=== PATIENT | male | born 1950 | race African-American/Black ===

== ENCOUNTER 2024-06-28 20:15 | Inpatient (IN) | payer MEDICARE, OTHER ==
[~2024-06-28] VITALS: Ht 185.4 cm; Wt 95.3 kg
[2024-06-28 21:19] LABS: BASOPHILS % (AUTO) 0.5 % (0.0-2.0); EOSINOPHILS # (AUTO) 0.2 K/uL (0.0-0.7); EOSINOPHILS % (AUTO) 2.5 % (0.0-6.0); HEMATOCRIT 41 % (39-51); LYMPHOCYTES # (AUTO) 1.1 K/uL (0.8-4.8); LYMPHOCYTES % (AUTO) 18.3 % (20.0-44.0); MEAN CORPUSCULAR HEMOGLOBIN 31 PG (26.0-33.0); MEAN CORPUSCULAR HGB CONC 34 g/dl (31.0-36.0); MEAN CORPUSCULAR VOLUME 89 fL (80-96); MONOCYTES # (AUTO) 0.6 K/uL (0.1-1.30); MONOCYTES % (AUTO) 9.2 % (2.0-12.0); NEUTROPHILS # (AUTO) 4.2 K/uL (1.8-8.9); NEUTROPHILS % (AUTO) 69.5 % (43.0-81.0); PLATELET COUNT (AUTO) 188 K/uL (150-450); RED BLOOD CELL COUNT(AUTO) 4.59 MIL/uL (4.5-6.0); RED CELL DISTRIBUTION WIDTH 13.2 % (11.5-15.0); WHITE BLOOD COUNT (AUTO) 6.1 K/uL (4.3-11.0)
[2024-06-28 21:35] LABS: APPEARANCE,URINE CLEAR (CLEAR); BILIRUBIN,URINE NEGATIVE (NEGATIVE); BLOOD, URINE NEGATIVE Ery/uL (NEGATIVE); COLOR,URINE YELLOW (YELLOW); KETONES,URINE NEGATIVE (NEGATIVE); LEUKOCYTE ESTERASE ,URINE NEGATIVE (NEGATIVE); NITRITE, URINE NEGATIVE (NEGATIVE); PROTEIN,URINE NEGATIVE (NEGATIVE); UGLUCOSE NEGATIVE (NEGATIVE); UROBILINOGEN,URINE 0.2 EU/dL (0.2)
[2024-06-28 21:37] LABS: ALANINE AMINOTRANSFERASE 20 U/L (12-78); ALBUMIN 3.6 g/dL (3.4-5.0); ALKALINE PHOSPHATASE 78 U/L (46-116); ASPARTATE AMINOTRANSFERASE 14 U/L (15-37); BILIRUBIN,DIRECT 0.1 mg/dL (0.0-0.2); BILIRUBIN,TOTAL 0.3 mg/dL (0.2-1.0); CALCIUM, SERUM 9.4 mg/dL (8.5-10.1); CARBON DIOXIDE 26 mmol/L (21-32); CHLORIDE 97 mmol/L (98-107); CREATININE 1.1 mg/dL (0.6-1.3); GLUCOSE 194 mg/dL (74-106); POTASSIUM 4.5 mmol/L (3.5-5.1); SODIUM SERUM 131 mmol/L (136-145); TOTAL PROTEIN, SERUM 7.5 g/dL (6.4-8.2); UREA NITROGEN, BLOOD 16 mg/dL (7-18)
[2024-06-28 21:38] LABS: SALICYLATE 0.7 mg/dL (2.8-20.0)
[2024-06-28 21:39] LABS: ACETAMINOPHEN <10 ug/ml (10-30); ALCOHOL, BLOOD < 3 mg/dL (0-10)
[2024-06-28 21:44] LABS: AMPHETAMINE, URINE NEGATIVE (NEGATIVE); BARBITURATE, URINE NEGATIVE (NEGATIVE); BENZODIAZEPINE, URINE NEGATIVE (NEGATIVE); CANNABINOID, URINE NEGATIVE (NEGATIVE); COCCAINE, URINE NEGATIVE (NEGATIVE); OPIATE, URINE NEGATIVE (NEGATIVE); PHENCYCLIDINE SCREEN,URINE NEGATIVE (NEGATIVE)
[2024-06-28] MEDS ORDERED: AMLO5TAB4 PO (23:17)
[2024-06-28] MEDS ORDERED: SITA50TA PO (23:17)
[2024-06-28] MEDS ORDERED: GLIP5TAB13 PO (23:17)
[2024-06-28] MEDS ORDERED: RISP0.2515 PO (23:17)
[2024-06-28] MEDS ORDERED: CLOP75TA15 PO (23:17)
[2024-06-28] MEDS ORDERED: PRAV20TA4 PO (23:17)
[2024-06-28] MEDS ORDERED: LOSA50TA39 PO (23:17)
[2024-06-28] MEDS ORDERED: FOLI0.8T3 PO (23:17)
[2024-06-28] MEDS ORDERED: LEVE500T20 PO (23:17)
[2024-06-29] MEDS ORDERED: DEXTROSE 50%-WATER 50 ML DISP.SYRIN IV PRN (01:00)
[2024-06-29] MEDS ORDERED: MAGNESIUM HYDROXIDE 30 ML UDC PO PRN (01:00)
[2024-06-29] MEDS ORDERED: MAG HYDROX/AL HYDROX/SIMETH 30 ML UDC PO PRN (01:00)
[2024-06-29] MEDS: BLOOD SUGAR DIAGNOSTIC 1 EACH STRIP IN ONE (01:11)
[2024-06-29 01:15] VITALS: BP 135/80; TEMP 98; O2SAT 98
[2024-06-29] MEDS ORDERED: TEMAZEPAM 15 MG CAPSULE PO PRN (01:30)
[2024-06-29] MEDS ORDERED: LORAZEPAM 1 MG TABLET PO PRN ×2 (01:30)
[2024-06-29] MEDS: BLOOD SUGAR DIAGNOSTIC 1 EACH STRIP IN SCH (07:00)
[2024-06-29] MEDS: INSULIN REGULAR, HUMAN 100 UNIT/ML 3 ML VIAL SQ PRN (07:59)
[2024-06-29 08:00] VITALS: BP 147/88; TEMP 97.8; O2SAT 98
[2024-06-29] MEDS: LOSARTAN POTASSIUM 50 MG TABLET PO SCH (11:01)
[2024-06-29] MEDS: LEVETIRACETAM (250 MG) 250 MG TABLET PO SCH (11:01)
[2024-06-29] MEDS: AMLODIPINE BESYLATE 5 MG TABLET PO SCH (11:01)
[2024-06-29] MEDS: CLOPIDOGREL BISULFATE 75 MG TABLET PO SCH (11:01)
[2024-06-29] MEDS: glipiZIDE 5 MG TABLET PO SCH (11:01)
[2024-06-29 16:00] VITALS: BP 123/83; TEMP 97.7; O2SAT 100
[2024-06-29 20:01] VITALS: BP 114/63; TEMP 97.7; O2SAT 100
[2024-06-29] MEDS: risperiDONE 0.25 MG TABLET PO SCH (22:01)
[2024-06-30 08:00] VITALS: BP 121/63; TEMP 98.3; O2SAT 99
[2024-06-30 08:31] LABS: BASOPHILS % (AUTO) 0.8 % (0.0-2.0); EOSINOPHILS # (AUTO) 0.2 K/uL (0.0-0.7); EOSINOPHILS % (AUTO) 3.5 % (0.0-6.0); HEMATOCRIT 39 % (39-51); HEMOGLOBIN 13.4 g/dL (13.5-17.5); LYMPHOCYTES % (AUTO) 19.7 % (20.0-44.0); MEAN CORPUSCULAR HEMOGLOBIN 31 PG (26.0-33.0); MEAN CORPUSCULAR HGB CONC 34 g/dl (31.0-36.0); MEAN CORPUSCULAR VOLUME 89 fL (80-96); MONOCYTES # (AUTO) 0.5 K/uL (0.1-1.30); MONOCYTES % (AUTO) 10.4 % (2.0-12.0); NEUTROPHILS # (AUTO) 3.3 K/uL (1.8-8.9); NEUTROPHILS % (AUTO) 65.6 % (43.0-81.0); PLATELET COUNT (AUTO) 190 K/uL (150-450); RED BLOOD CELL COUNT(AUTO) 4.41 MIL/uL (4.5-6.0)
[2024-06-30 08:43] LABS: CALCIUM, SERUM 9.3 mg/dL (8.5-10.1); CREATININE 0.9 mg/dL (0.6-1.3); POTASSIUM 5.1 mmol/L (3.5-5.1)
[2024-06-30] MEDS: ATORVASTATIN 10 MG TABLET PO SCH (08:44)
[2024-06-30] MEDS: LINAGLIPTIN 5 MG TABLET PO SCH (08:44)
[2024-06-30] MEDS: FOLIC ACID 1 MG TABLET PO SCH (08:44)
[2024-06-30 08:47] LABS: MAGNESIUM 2.1 mg/dL (1.8-2.4); PHOSPHORUS 3.5 mg/dL (2.5-4.9)
[2024-06-30 09:07] LABS: THYROID STIMULATING HORMONE 0.86 uIU/mL (0.358-3.74); URIC ACID 3.9 mg/dL (2.6-7.2)
[2024-06-30 16:00] VITALS: BP 126/74; TEMP 98.1; O2SAT 98
[2024-06-30 20:18] VITALS: BP 110/60; TEMP 98.3; O2SAT 100
[2024-06-30] MEDS: risperiDONE 0.25 MG TABLET PO SCH (21:31)
[2024-07-01 08:00] VITALS: BP 129/79; TEMP 97.8; O2SAT 98
[2024-07-01 16:04] VITALS: BP 129/81; TEMP 98.2; O2SAT 100
[2024-07-01 22:56] VITALS: BP 128/72; TEMP 98; O2SAT 99
[2024-07-01 22:58] VITALS: BP 128/72; TEMP 98; O2SAT 99
[2024-07-02 08:00] VITALS: BP 136/74; TEMP 98.7; O2SAT 96
[2024-07-02 15:14] VITALS: BP 130/77; TEMP 98.6; O2SAT 98
[2024-07-02 20:13] VITALS: BP 134/60; TEMP 98.3; O2SAT 99
[2024-07-02] MEDS: risperiDONE 0.25 MG TABLET PO SCH (21:43)
[2024-07-03 08:00] VITALS: BP 128/61; TEMP 97.5; O2SAT 98
[2024-07-03] MEDS: risperiDONE 0.25 MG TABLET PO SCH (13:19)
[2024-07-03 16:00] VITALS: BP 153/81; TEMP 97.8; O2SAT 97
[2024-07-03 19:56] VITALS: BP 155/97; TEMP 97.8; O2SAT 99
[2024-07-04 08:00] VITALS: BP 143/87; TEMP 97.8; O2SAT 98
[2024-07-04 16:00] VITALS: BP 138/90; TEMP 97.7; O2SAT 98
[2024-07-04 19:57] VITALS: BP 141/73; TEMP 97.7; O2SAT 99
[2024-07-05 08:00] VITALS: BP 133/79; TEMP 97.7; O2SAT 99
[2024-07-05] MEDS: ACETAMINOPHEN 325 MG TABLET PO PRN (13:21)
[2024-07-05 16:00] VITALS: BP 131/72; TEMP 98; O2SAT 99
[2024-07-05 20:00] VITALS: BP 158/91; TEMP 97.7; O2SAT 99
[2024-07-05 20:17] LABS: APPEARANCE,URINE CLEAR (CLEAR); BILIRUBIN,URINE NEGATIVE (NEGATIVE); BLOOD, URINE NEGATIVE Ery/uL (NEGATIVE); COLOR,URINE YELLOW (YELLOW); KETONES,URINE NEGATIVE (NEGATIVE); LEUKOCYTE ESTERASE ,URINE NEGATIVE (NEGATIVE); NITRITE, URINE NEGATIVE (NEGATIVE); PROTEIN,URINE NEGATIVE (NEGATIVE); UGLUCOSE 1+ mg/dL (NEGATIVE); UROBILINOGEN,URINE 0.2 EU/dL (0.2)
[2024-07-05 22:34] LABS: ADD URINE CULTURE NO; BACTERIA,URINE None seen /HPF (None Seen); RBC,URINE 0-2 /HPF (0-2); SQUAMOUS EPITHELIAL CELL,UR 0-2 /HPF (None Seen); WBC,URINE 0-2 /HPF (0-3)
[2024-07-06 08:00] VITALS: BP 177/99; TEMP 97.8; O2SAT 99
[2024-07-06 16:00] VITALS: BP 142/74; TEMP 98.2; O2SAT 100
[2024-07-06 20:00] VITALS: BP 138/86; TEMP 98.2; O2SAT 98
[2024-07-07 08:00] VITALS: BP 124/67; TEMP 97.7; O2SAT 99
[2024-07-07 16:00] VITALS: BP 147/76; TEMP 98.3; O2SAT 99
[2024-07-07 20:11] VITALS: BP 114/64; TEMP 98.3; O2SAT 100
[2024-07-08 07:48] LABS: BASOPHILS # (AUTO) 0.1 K/uL (0.0-0.2); BASOPHILS % (AUTO) 0.9 % (0.0-2.0); EOSINOPHILS # (AUTO) 0.1 K/uL (0.0-0.7); EOSINOPHILS % (AUTO) 2.1 % (0.0-6.0); HEMATOCRIT 43 % (39-51); HEMOGLOBIN 14.8 g/dL (13.5-17.5); LYMPHOCYTES # (AUTO) 1.1 K/uL (0.8-4.8); LYMPHOCYTES % (AUTO) 17.5 % (20.0-44.0); MEAN CORPUSCULAR HEMOGLOBIN 31 PG (26.0-33.0); MEAN CORPUSCULAR HGB CONC 34 g/dl (31.0-36.0); MEAN CORPUSCULAR VOLUME 89 fL (80-96); MONOCYTES # (AUTO) 0.6 K/uL (0.1-1.30); MONOCYTES % (AUTO) 9.4 % (2.0-12.0); NEUTROPHILS # (AUTO) 4.3 K/uL (1.8-8.9); NEUTROPHILS % (AUTO) 70.1 % (43.0-81.0); PLATELET COUNT (AUTO) 203 K/uL (150-450); RED BLOOD CELL COUNT(AUTO) 4.81 MIL/uL (4.5-6.0); RED CELL DISTRIBUTION WIDTH 13.2 % (11.5-15.0); WHITE BLOOD COUNT (AUTO) 6.2 K/uL (4.3-11.0)
[2024-07-08 08:00] VITALS: BP 122/58; TEMP 98.1; O2SAT 99
[2024-07-08 08:01] LABS: ALBUMIN 3.7 g/dL (3.4-5.0); BILIRUBIN,TOTAL 0.6 mg/dL (0.2-1.0); CALCIUM, SERUM 9.7 mg/dL (8.5-10.1); CREATININE 1.1 mg/dL (0.6-1.3); MAGNESIUM 2.2 mg/dL (1.8-2.4); POTASSIUM 4.9 mmol/L (3.5-5.1); TOTAL PROTEIN, SERUM 7.8 g/dL (6.4-8.2)
[2024-07-08 15:41] VITALS: BP 117/85; TEMP 97.9; O2SAT 100
[2024-07-08 20:06] VITALS: BP 122/71; TEMP 98.2; O2SAT 100
[2024-07-09 08:00] VITALS: BP 124/77; TEMP 97.7; O2SAT 97
[2024-07-09] MEDS: TEMAZEPAM 7.5 MG CAPSULE PO PRN (08:50)
[2024-07-09 16:00] VITALS: BP 127/70; TEMP 98.8; O2SAT 100
[2024-07-09 19:59] VITALS: BP 119/74; TEMP 98.9; O2SAT 99
[2024-07-10 08:00] VITALS: BP 129/82; TEMP 98; O2SAT 97
[2024-07-10 08:19] VITALS: BP 129/82
[2024-07-10] MEDS: LORAZEPAM 1 MG TABLET PO PRN (12:10)
== END 2024-07-10 14:20 | DRG 885 ==
LOC: ER 20:41 → GPS 23:10
PROVIDERS: ADMIT Psychiatry & Neurology Psychosomatic Medicine; ATTEND Student in an Organized Health Care Education/Training Program
DX: F20.9 Schizophrenia, unspecified (principal); E87.1 Hypo-osmolality and hyponatremia; F29 Unspecified psychosis not due to a substance or known physiological condition; E11.9 Type 2 diabetes mellitus without complications; I10 Essential (primary) hypertension; G31.84 Mild cognitive impairment of uncertain or unknown etiology; Z79.84 Long term (current) use of oral hypoglycemic drugs; Z79.02 Long term (current) use of antithrombotics/antiplatelets; Z79.899 Other long term (current) drug therapy; E86.0 Dehydration; G40.909 Epilepsy, unspecified, not intractable, without status epilepticus; I25.10 Atherosclerotic heart disease of native coronary artery without angina pectoris; F39 Unspecified mood [affective] disorder; E78.5 Hyperlipidemia, unspecified; Z73.6 Limitation of activities due to disability
CPT/HCPCS: 36415; 80048-TC; 80053-TC; 80061-TC; 80076-TC; 81001; 82962-TC; 83735-TC; 84100-TC; 84443-TC; 84550-TC; 85025-TC; 87081-TC; 97110-TC; 97116-TC; 97530-TC; G0480; J1815